=== PATIENT | female | born 1985 | race Caucasian/White ===

== ENCOUNTER 2018-01-28 13:27 | Inpatient (IN) | payer BC ==
[2018-01-28] MEDS ORDERED: Butorphanol Tartrate 1 MG/ML VIAL SLOW IVP PRN (13:57)
[2018-01-28] MEDS ORDERED: Carboprost 250 MCG/ML AMP IM PRN (13:57)
[2018-01-28] MEDS ORDERED: HYDROcodone/Acetaminophen 5/325 mg Tablet PO PRN ×2 (13:57)
[2018-01-28] MEDS ORDERED: Misoprostol 200 MCG TAB PR PRN (13:57)
[2018-01-28] MEDS ORDERED: Diphenoxylate HCl/Atropine Tablet PO PRN ×2 (13:57)
[2018-01-28] MEDS ORDERED: Ibuprofen 800 MG TAB PO PRN (13:57)
[2018-01-28] MEDS ORDERED: Lidocaine 1% (PF) 30 ML VIAL SC PRN (13:57)
[2018-01-28] MEDS ORDERED: Acetaminophen 500 MG TAB PO PRN (13:57)
--- NOTE | 2018-01-28 14:06 | PDOC.LDHP ---
Labor and Delivery H&P Chief complaint: other (Elevated BP) HPI: 32 y/o G1 at 37w0d, patient of Dr. Whipple, presents with elevated BPs. She went to urgent care for a headache (which has since resolved) and had severely elevated BPs. She was told to come here for evaluation. She turned in a 24 hour urine yesterday. C/o swollen feet. Denies any current CHAVEZ, vision changes, RUQ pain or other concerns. No VB, LOF, ctx, or decreased FM. ROS neg for HEENT, cv, pulm, gi, gu, neuro, psych, skin, musculoskeletal or constitutional symptoms other than mentioned above. OB History Details: first Current complications: none Past Medical History: Denies Current medications: pre-kieran vitamins Previous surgical history: none Allergies/Adverse Reactions: Allergies Allergy/AdvReac Type Severity Reaction Status Date / Time No Known Allergies Allergy Unverified 01/28/18 14:06 Social history: none - Physical Exam Vital signs reviewed and normal: yes General: NAD, resting Lungs: nonlabored breathing Abdomen: gravid Extremeties: no edema FHT: category 1 (140s, mod variability, + accels, no decels) [place] contractions every: 10 mins - Vaginal Exam cm dilated: 1 (vtx) Effacement: 25% Station: -3 - OB Labs Blood type: A RH: positive Antibody Screen: negative HIV: negative RPR: negative HEPSAg: negative 1 hour GCT: negative GBS: negative Rubella: immune - Assessment L&D Assessment: medically indicated induction (dx of preeclampsia with severe features) - Plan Plan: admit to L&D, cervical ripening, labor augmentation if indicated, informed consent obtained, magnesium for seizure prophylaxis, anesthesia consult for pain management (if desired)
[2018-01-28] MEDS ORDERED: Calcium Gluc 4.6 MEQ/10 ML (100 MG/ML) SLOW IVP PRN (14:13)
[2018-01-28 14:14] VITALS: BMI 30.2
[2018-01-28] MEDS ORDERED: Magnesium Sulfate 20 GM/WATER 500 ML BAG IVPB SCH (14:15)
[2018-01-28] MEDS: Lactated Ringer's 1,000 ML IV SCH (14:45)
[2018-01-28 14:57] LABS: Hemoglobin 9.7 g/dL (12.0-16.0); Mean Corpuscular HGB CONC 35.3 g/dL (32.0-36.0); Mean Corpuscular Hemoglobin 29.9 pg (27.0-31.0); Mean Corpuscular Volume 84.7 fL (78.0-98.0); Mean Platelet Volume 8.6 fL (7.4-10.4); Platelet Count 220 thou/uL (130-400); RBC Distribution Width 12.3 % (11.5-14.5); Red Blood Cell (RBC) Count 3.24 mill/uL (4.20-5.40); White Blood Cell (WBC) Count 10.8 thou/uL (4.8-10.8)
[2018-01-28 15:20] LABS: ALT (SGPT) 11 U/L (8-55); AST (SGOT) 14 U/L (5-34); Albumin 3.5 g/dL (3.5-5.0); Alkaline Phosphatase 111 U/L (40-150); Anion Gap 13 mmol/L (10-20); BUN (Urea Nitrogen) 5 mg/dL (7.0-18.7); Bilirubin, Total 0.3 mg/dL (0.2-1.2); Calc. Creatinine Clearance 193 mL/min (70-130); Calcium 9.7 mg/dL (7.8-10.44); Carbon Dioxide 22 mmol/L (22-29); Chloride 106 mmol/L (98-107); Estimated GFR-MDRD Greater than 90; Globulin 3.4 g/dL (2.4-3.5); Glucose 77 mg/dL (70-105); Potassium 3.3 mmol/L (3.5-5.1); Protein, Total 6.9 g/dL (6.0-8.3); Sodium 138 mmol/L (136-145)
[2018-01-28] MEDS: Magnesium Sulfate 20 gm/500 ml 20 GM/500 ML BAG IVPB SCH ×2 (15:22→23:08)
[2018-01-28 15:45] LABS: HBSAg Index 0.23 S/CO (0-0.99); Hep B Surf Ag Non-Reactive S/CO (NonReactive); Syphilis Antibody Nonreactive (Nonreactive); Syphilis Antibody Index 0.05 S/CO (<1.00 Non-Reactive)
[2018-01-28] MEDS: Misoprostol 100 MCG TAB VAG SCH ×3 (15:54→22:00)
[2018-01-28] MEDS: Promethazine HCl 25 MG/ML VIAL IM PRN (21:54)
[2018-01-29] MEDS: Promethazine HCl 25 MG/ML VIAL IM PRN ×2 (01:49→05:01)
[2018-01-29] MEDS: Lactated Ringer's 1,000 ML IV SCH (01:51)
[2018-01-29] MEDS: Misoprostol 100 MCG TAB VAG SCH (03:35)
[2018-01-29] MEDS ORDERED: Fentanyl 4 mcg/Bup 0.1% Cadd 100 ML ONE ×2 (08:30→15:20)
[2018-01-29] MEDS: Ondansetron PF 4 MG/2 ML Vial IVP PRN ×2 (08:39→15:52)
[2018-01-29] MEDS: Dextrose 5%-Lactated Ringers 1,000 ML IV SCH (09:00)
[2018-01-29] MEDS ORDERED: Ondansetron PF 4 MG/2 ML Vial IVP PRN (09:09)
[2018-01-29] MEDS ORDERED: Naloxone HCl 0.4 mg/ml Vial IVP PRN ×2 (09:09)
[2018-01-29] MEDS ORDERED: ePHEDrine/0.9% NaCl/PF SYRINGE 50 mg/10 ml SLOW IVP PRN (09:09)
[2018-01-29] MEDS ORDERED: Eucerin (Mineral Oil/Petrolatum,White) 30 gm Jar TOP PRN (09:09)
[2018-01-29] MEDS ORDERED: Lactated Ringer's 500 ML IV PRN (09:09)
[2018-01-29] MEDS ORDERED: Acetaminophen 325 MG TAB PO PRN (09:09)
[2018-01-29] MEDS ORDERED: Promethazine HCl 25 MG/ML VIAL IM PRN (09:09)
[2018-01-29] MEDS ORDERED: diphenhydrAMINE 50 MG/ML VIAL IVP PRN (09:09)
[2018-01-29] MEDS ORDERED: Fentanyl 4 mcg/Bupivacaine 0.1% Cassette 100 ML EPIDURAL SCH (09:15)
[2018-01-29] MEDS ORDERED: Communication Order-Pharmacy FS SCH (09:15)
[2018-01-29] MEDS ORDERED: NS w/ Oxytocin 10 units 500 ML ONE (10:11)
[2018-01-29] MEDS ORDERED: NS w/ Oxytocin 10 units 500 ML IV SCH (10:45)
[2018-01-29] MEDS: Magnesium Sulfate 20 gm/500 ml 20 GM/500 ML BAG IVPB SCH ×2 (11:10→19:40)
[2018-01-29] MEDS ORDERED: Labetalol HCl 100 MG/20 ML VIAL ONE (13:07)
[2018-01-29] MEDS: Labetalol HCl 100 MG/20 ML VIAL SLOW IVP PRN ×2 (13:09→17:08)
--- NOTE | 2018-01-29 15:25 | PDOC.EVN ---
Event Note - Event Note Event Note: Came to L&D to assess pt. Feeling better with epidural. Balloon out. SVE /- 1. AROM with clear fluid at this time. FWB category II. Continue pitocin and magnesium.
[2018-01-29] MEDS: NS / Oxytocin 40 units/1000ml 1,000 ML IV PRN ×2 (17:36→19:14)
[2018-01-29 17:39] LABS: Actual Bicarbonate (HCO3a) 30.6 mEq/L (22-28); Base Excess (BEa) 1.6 mEq/L (-2.0 to +3.0)
[2018-01-29] MEDS ORDERED: HYDROcodone/Acetaminophen 5/325 mg Tablet PO PRN ×3 (17:57→17:59)
[2018-01-29] MEDS ORDERED: Ibuprofen 800 MG TAB PO PRN (17:57)
--- NOTE | 2018-01-30 00:21 | DN ---
DATE OF PROCEDURE: 01/29/2018 DATE OF DELIVERY: 01/29/2018 PREOPERATIVE DIAGNOSIS: 37-week intrauterine with severe preeclampsia. POSTOPERATIVE DIAGNOSES: 37-week intrauterine with severe preeclampsia as well as a first-degree hymenal laceration and a left labial laceration. PROCEDURES PERFORMED: Normal spontaneous vaginal delivery and laceration repair. ANESTHESIA: Epidural and local. BRIEF DELIVERY SUMMARY: This is a 32-year-old G1, now P1, who presented with headache and was found to have severe range blood pressures as well as an elevated 24-hour urine protein. She was admitted for induction of labor and management of severe preeclampsia on 01/28/2018. She received magnesium and Cytotec overnight with good response to her cervix. She was started on Pitocin with a balloon this morning and made good progress. She underwent artificial rupture of membranes about 3:00 p.m. and with clear fluid and continued to progress in labor. She progressed to complete and pushing. She delivered a live male infant head away. Mouth and nares were bulb suctioned at the perineum. There was no nuchal cord. Shoulders and body easily followed and the infant was handed to the waiting Neonatology Team. Please see their notes for the details of the portion of the delivery. Cord gases were collected as well as cord blood sent for analysis. Cord pH was 7.29. There was a left labial laceration, which was repaired in standard running fashion using 3-0 Vicryl suture under epidural and local anesthesia with good hemostasis. There was also a posterior hymenal laceration, which was repaired with a single [id number] suture using again 3-0 Vicryl suture under epidural anesthesia with excellent hemostasis. Placenta delivered spontaneously and intact with a 3-vessel umbilical cord and the placenta was sent to pathology. The mom was left in the nurse in good condition. She will continue to receive magnesium for the next 24 hours, awaiting diuresis. The baby went to NICU for further monitoring. Job ID: [id number]
[2018-01-30] MEDS: Magnesium Sulfate 20 gm/500 ml 20 GM/500 ML BAG IVPB SCH ×2 (06:11→16:17)
--- NOTE | 2018-01-30 10:04 | PDOC.PP ---
Post Progress Note Post Day #: 1 Subjective: Feeling a little better. Still on magnesium until 5pm tonight for preeclampsia. BP improving. Some increase in UOP. PO intake tolerated: yes Flatus: yes Ambulation: no Weight Weight 193 lb - Physical Examination General: NAD Cardiovascular: no m/r/g, RRR Respiratory: clear to auscultation bilaterally, non-labored breathing Abdominal: + bowel sounds, lochia, no distention, appropriately TTP Psychiatric: A&Ox3, normal affect Result Diagrams: 01/28/18 14:49 01/28/18 14:47 Additional Labs: Post Labs Blood Type A POSITIVE 01/28/18 14:49 Hep Bs Antigen Non-Reactive S/CO (NonReactive) 01/28/18 14:49 (1) Severe preeclampsia Code(s): O14.10 - SEVERE PRE-ECLAMPSIA, UNSPECIFIED TRIMESTER Status: Acute (2) Vaginal delivery Code(s): O80 - ENCOUNTER FOR FULL-TERM UNCOMPLICATED DELIVERY Status: Acute - Assessment/Plan Continue magnesium 24 hour May move out to PP later tonight Labetolol PRN for BP May consider lasix x1 if edema not resolving
[2018-01-31] MEDS ORDERED: Bisacodyl 10 MG SUPP PR PRN (03:14)
[2018-01-31] MEDS ORDERED: Lanolin Ointment 7 GM TUBE TOP PRN (03:14)
[2018-01-31] MEDS ORDERED: HYDROcodone/Acetaminophen 5/325 mg Tablet PO PRN (03:14)
[2018-01-31] MEDS ORDERED: Preparation H Ointment 28 GM TUBE PR PRN (03:14)
[2018-01-31] MEDS ORDERED: Milk Of Magnesia 30 ML UDCUP PO PRN (03:14)
[2018-01-31] MEDS ORDERED: NS / Oxytocin 40 units/1000ml 1,000 ML IV SCH (03:14)
[2018-01-31] MEDS: Dextrose 5%-Lactated Ringers 1,000 ML IV SCH (05:43)
[2018-01-31] MEDS: Misoprostol 100 MCG TAB VAG SCH ×2 (05:43→05:47)
[2018-01-31] MEDS: Ibuprofen 800 MG TAB PO SCH ×3 (07:28→21:45)
[2018-01-31] MEDS: Labetalol HCl 100 MG/20 ML VIAL SLOW IVP PRN (08:28)
[2018-01-31] MEDS: Docusate Calcium (SURFAK) 240 MG CAP PO SCH ×2 (09:00→21:45)
[2018-01-31] MEDS: HYDROcodone/Acetaminophen 5/325 mg Tablet PO PRN (09:04)
[2018-01-31] MEDS: Ferrous Sulfate 325 MG TAB PO SCH ×2 (09:05→17:33)
[2018-01-31] MEDS ORDERED: Labetalol HCl 100 MG/20 ML VIAL SLOW IVP SCH (09:30)
[2018-01-31] MEDS ORDERED: hydrALAZINE 10 MG TAB PO PRN (15:06)
[2018-01-31] MEDS ORDERED: Furosemide 20 MG TAB PO SCH (15:15)
[2018-02-01] MEDS: Ibuprofen 800 MG TAB PO SCH ×2 (05:37→15:07)
[2018-02-01] MEDS: HYDROcodone/Acetaminophen 5/325 mg Tablet PO PRN (06:29)
[2018-02-01] MEDS: Docusate Calcium (SURFAK) 240 MG CAP PO SCH (09:53)
--- NOTE | 2018-02-01 11:52 | PDOC.PP ---
Post Progress Note Post Day #: 3 Subjective: No c/o. Pain controlled. Working on . PO intake tolerated: yes Flatus: yes Ambulation: yes Vital Signs (12 hours) Temp Pulse Resp BP Pulse Ox 02/01/18 08:09 98.4 F 73 20 177/96 H 98 02/01/18 05:45 80 18 160/57 H 02/01/18 00:13 98.1 F 72 16 140/82 Weight Weight 193 lb - Physical Examination General: NAD Cardiovascular: no m/r/g, RRR Respiratory: clear to auscultation bilaterally, non-labored breathing Abdominal: + bowel sounds, lochia, no distention, appropriately TTP Result Diagrams: 01/28/18 14:49 01/28/18 14:47 Additional Labs: Post Labs Blood Type A POSITIVE 01/28/18 14:49 Hep Bs Antigen Non-Reactive S/CO (NonReactive) 01/28/18 14:49 (1) Severe preeclampsia Code(s): O14.10 - SEVERE PRE-ECLAMPSIA, UNSPECIFIED TRIMESTER Status: Acute (2) Vaginal delivery Code(s): O80 - ENCOUNTER FOR FULL-TERM UNCOMPLICATED DELIVERY Status: Acute - Assessment/Plan Increase Toprol 50mg BID D/C home F/U with baby tomorrow
[2018-02-01 12:06] VITALS: BP 164/86; TEMP 98.7
== END 2018-02-01 15:30 | disposition home or self-care (01) | DRG 807 ==
LOC: L&D/OP 13:27 → L&D 14:21 → 3SE 01-31 22:52
PROVIDERS: ADMIT Family Medicine; ATTEND Family Medicine
PROC: 10E0XZZ Delivery of Products of Conception, External Approach (ICD-10-PCS; principal; 2018-01-29)
PROC: 0HQ9XZZ Repair Perineum Skin, External Approach (ICD-10-PCS; 2018-01-29)
PROC: 0HQ9XZZ Repair Perineum Skin, External Approach (ICD-10-PCS; 2018-01-29)
PROC: 10907ZC Drainage of Amniotic Fluid, Therapeutic from Products of Conception, Via Natural or Artificial Opening (ICD-10-PCS; 2018-01-29)
DX: O14.14 Severe pre-eclampsia complicating childbirth (principal); Z37.0 Single live birth; Z3A.37 37 weeks gestation of pregnancy; O70.0 First degree perineal laceration during delivery
CPT/HCPCS: 36415; 51702; 80053; 81003; 82805; 84156; 85027; 86780; 86850; 86900; 86901; 87340; 88307; 99285; C1726; J0595; J2001; J2405; J2550; J3475